=== PATIENT | female | born 1975 | race Caucasian/White ===

== ENCOUNTER 2017-02-02 17:21 | Emergency (ER) | payer MEDICAID ==
[~2017-02-02] VITALS: Wt 76.2 kg
[~2017-02-02 17:21] MED LIST: AMOXICILLIN500 MG PO; ATIVAN PO; AUGMENTIN 875 M1 TAB PO; CLINDAMYCIN HC300 MG PO; DARVOCET N 1001 TAB PO; DAYPRO600 M1 PO; FLEXERIL5 MG PO; GABAPENTIN600 MG PO; MOTRIN800 MG PO; NAPROSYN500 MG PO; NEURONTIN600 MG PO; NEURONTIN800 MG PO; PAXIL PO; PAXIL40 M1 PO; PENICILLIN VK500 MG PO; Peridex 473 ML473 ML PO; ROBAXIN750 MG PO; SEROQUEL25 MG; SYNTHROID,LEVO50 MCG PO; SYNTHROID0.05 MG PO; SYNTHROID0.5 MG PO; Synthroid,Levo50 MCG PO; TRAMADOL HCL50 MG PO; TRIMOX500 MG PO; ULTRAM50 MG PO; VICODIN 5/500 505 MG PO; VISTARIL50 MG PO; ZOFRAN ODT4 MG SL
[2017-02-02 17:24] VITALS: BP 163/100
[2017-02-02] MEDS ORDERED: NEURONTIN300 MG PO (17:28)
[2017-02-02] MEDS ORDERED: Motrin,Rufen800 MG PO (17:39)
[2017-02-02] MEDS ORDERED: PENICILLIN VK500 MG PO (17:39)
== END 2017-02-02 17:42 | disposition home or self-care (01) ==
LOC: ED 17:21
DX: K02.9 Dental caries, unspecified (principal); F17.200 Nicotine dependence, unspecified, uncomplicated; Z79.899 Other long term (current) drug therapy